=== PATIENT | male | born 1935 | race Caucasian/White ===

== ENCOUNTER → 2017-11-22 | Outpatient (CLI) | payer MEDICARE, OTHER ==
--- NOTE | 2017-11-23 15:54 | XCELERA REPORT ---
[address] [address] Lower Extremity Arterial Evaluation Name: JOANNE DIXON Age: 82 yrs Gender: Male : 1935 Patient Status: Outpatient Patient Location: Study Date: 11/22/2017 11:05 AM Procedure: A color flow and duplex scan of the lower extremity arteries was performed bilaterally with velocity and waveform anaylsis. Ankle brachial indicies performed. Reason For Study: PAD Ordering Physician: CONSTANTINO MARTINEZ Performed By: Clinton Wooten Measurements and Calculations Right Left VINYL INSTALLER PSV 72.7 124.7 cm/sec Prox PFA PSV -41.0 -38.8 cm/sec Prox SFA PSV 39.0 38.5 cm/sec Mid SFA PSV -50.0 -45.5 cm/sec Dist SFA PSV -55.0 -37.7 cm/sec Prox Pop A PSV 25.9 36.6 cm/sec Dist SARAH PSV 71.9 77.5 cm/sec Dist [employer] PSV 46.5 55.9 cm/sec Celestine Pedis PSV 56.7 79.6 cm/sec Right Side Arterial Evaluation Normal velocity and triphasic waveforms noted from the Common Femoral artery to the infrageniculate vessels. Biphasic in the Dorsalis Pedis. 0-19% stenosis at the Dorsalis Pedis. Ankle Brachial index is 1.2. PPG's normal. Left Side Arterial Evaluation Normal velocity and triphasic waveforms noted from the Common Femoral artery to the infrageniculate vessels. Biphasic in the Dorsalis Pedis. 0-19% stenosis at the Dorsalis Pedis. Ankle Brachial index is 1.2. PPG's normal. Interpretation Summary Mild hemodynamically significant lesions in the bilateral lower extremities, on duplex imaging, at rest. : CONSTANTINO MARTINEZ > Rojelio Murray
== END ==
LOC: SP 10:39
PROVIDERS: ATTEND Preventive Medicine Undersea and Hyperbaric Medicine
DX: I70.25 Atherosclerosis of native arteries of other extremities with ulceration (principal)
CPT/HCPCS: 93922; 93925